=== PATIENT | female | born 1940 | race Caucasian/White ===

== ENCOUNTER → 2023-08-14 09:32 | Outpatient (REF) | payer MEDICARE, SELFPAY | LOC: EMG 09:32 | PROVIDERS: ATTENDING PHYSICIAN Orthopaedic Surgery | DX: R20.0 Anesthesia of skin (principal) | CPT/HCPCS: 95886; 95909 ==

== ENCOUNTER → 2024-01-10 11:20 | Outpatient (REF) | payer MEDICARE, SELFPAY | LOC: WDC 11:20 | PROVIDERS: ATTENDING PHYSICIAN Family Medicine | DX: Z12.31 Encounter for screening mammogram for malignant neoplasm of breast (principal) | CPT/HCPCS: 77063; 77067 ==

== ENCOUNTER → 2024-01-16 09:05 | Outpatient (REF) | payer MEDICARE, SELFPAY | LOC: WDC 09:05 | PROVIDERS: ATTENDING PHYSICIAN Family Medicine | DX: R92.8 Other abnormal and inconclusive findings on diagnostic imaging of breast (principal) | CPT/HCPCS: 76642 ==

== ENCOUNTER → 2024-02-13 08:08 | Outpatient (REF) | payer MEDICARE, SELFPAY ==
--- NOTE | 2024-02-14 11:31 | OID.BR.INTR ---
OID Breast Navigator - Initial
- -
Did not meet patient at time of biopsy. Will follow up per protocol.
== END ==
LOC: WDC 08:08
PROVIDERS: ATTENDING PHYSICIAN Family Medicine
DX: N63.41 Unspecified lump in right breast, subareolar (principal)
CPT/HCPCS: 88305; 19083; 77065; 88341; 88342; 88360; A4648

== ENCOUNTER → 2024-03-27 07:55 | Outpatient (REF) | payer MEDICARE, SELFPAY | LOC: WDC 07:55 | PROVIDERS: ATTENDING PHYSICIAN Surgery; FAMILY PHYSICIAN Family Medicine | DX: C50.411 Malignant neoplasm of upper-outer quadrant of right female breast (principal) | CPT/HCPCS: 19285; A4648 ==

== ENCOUNTER 2024-03-28 06:30 | Day surgery (SDC) | payer MEDICARE, SELFPAY ==
[2024-03-11 09:38] VITALS: BMI 33.6
[2024-03-28 08:12] VITALS: BP 122/54
[2024-03-28 08:22] VITALS: BMI 33.6
[2024-03-28] MEDS: TYLENOL 1000 MG PO (08:22)
[2024-03-28] MEDS: LOVENOX 40 MG SC (08:22)
[2024-03-28] MEDS: NORMOSOL-R/PLASMALYTE-A 1000 IV (08:23)
[2024-03-28] MEDS: VANCOCIN 200 IV (08:25)
[2024-03-28 10:15] VITALS: BP 120/56; BP_SYST 12
[2024-03-28 10:30] VITALS: BP 125/58; BP_SYST 12
[2024-03-28 10:45] VITALS: BP 129/76; BP 135/57; BP_SYST 12
[2024-03-28 11:05] VITALS: BP 141/76
== END 2024-03-28 11:47 | disposition home or self-care (01) ==
LOC: SDS 06:30
PROVIDERS: ATTENDING PHYSICIAN Surgery; FAMILY PHYSICIAN Family Medicine
DX: C50.911 Malignant neoplasm of unspecified site of right female breast (principal)
CPT/HCPCS: 19301; 88305; 88307; 76098; 88341; 88342; A4648

== ENCOUNTER → 2024-09-11 11:11 | Outpatient (REF) | payer MEDICARE, SELFPAY | LOC: HWRCS 11:11 | PROVIDERS: ATTENDING PHYSICIAN Internal Medicine Cardiovascular Disease; FAMILY PHYSICIAN Family Medicine | DX: R06.02 Shortness of breath (principal) | CPT/HCPCS: 78452; 93017; A9500; J2785 ==

== ENCOUNTER → 2024-09-18 14:48 | Outpatient (REF) | payer MEDICARE, SELFPAY | LOC: RCS 14:48 | PROVIDERS: ATTENDING PHYSICIAN Internal Medicine Cardiovascular Disease; FAMILY PHYSICIAN Family Medicine | DX: R06.02 Shortness of breath (principal) | CPT/HCPCS: 93306 ==

== ENCOUNTER → 2024-11-27 11:42 | Outpatient (REF) | payer MEDICARE, SELFPAY | LOC: RAD 11:42 | PROVIDERS: ATTENDING PHYSICIAN Internal Medicine Critical Care Medicine; FAMILY PHYSICIAN Family Medicine | DX: R06.02 Shortness of breath (principal) | CPT/HCPCS: 71046 ==

== ENCOUNTER → 2024-12-05 11:23 | Outpatient (REF) | payer MEDICARE, SELFPAY | LOC: DHSLP 11:23 | PROVIDERS: ATTENDING PHYSICIAN Internal Medicine Critical Care Medicine; FAMILY PHYSICIAN Family Medicine | DX: G47.33 Obstructive sleep apnea (adult) (pediatric) (principal) | CPT/HCPCS: 95800 ==

== ENCOUNTER → 2025-02-03 12:45 | Outpatient (REF) | payer MEDICARE, SELFPAY | LOC: WDC 12:45 | PROVIDERS: ATTENDING PHYSICIAN Family Medicine Geriatric Medicine; FAMILY PHYSICIAN Family Medicine | DX: Z12.31 Encounter for screening mammogram for malignant neoplasm of breast (principal) | CPT/HCPCS: 77063; 77067 ==